=== PATIENT | male | born 1950 | race Two or more races ===

== ENCOUNTER → 2025-04-18 | Outpatient (CLI) | payer MEDICARE, SELFPAY ==
--- NOTE | 2025-04-18 08:44 | XR_ITS ---
Examination: Knee, left , 3 views Technique: Knee AP, lateral, oblique 3 views Date and time of exam: April 18, 2025 0906 hours INDICATIONS: Patient fell 6 days ago with injury to the knee, knee pain. FINDINGS: Prominent osteopenia No fracture or dislocation Moderate osteoarthritis medial patellofemoral joints IMPRESSION: No acute fracture
--- NOTE | 2025-04-18 08:44 | XR_ITS ---
Examination: Left femur 2 views Technique one AP lateral left femur 2 views Date and time: April 18 thousand 25 0906 hours INDICATIONS: History femur surgery 2002, patient fell 6 days ago with injury to the femur femur pain FINDINGS: Healed fracture left hip Severe osteopenia Shaft of the femur intact Orthopedic hardware satisfactory position IMPRESSION: No acute fracture Moderate left hip osteoarthritis
== END | disposition home or self-care (01) ==
PROVIDERS: PCP Registered Nurse; Referring Provider Registered Nurse; Visit Provider Registered Nurse
DX: M16.12 Unilateral primary osteoarthritis, left hip (principal); S89.92XA Unspecified injury of left lower leg, initial encounter; W19.XXXA Unspecified fall, initial encounter
CPT/HCPCS: 73552; 73562

== ENCOUNTER 2025-04-23 17:42 | Observation (INO) | payer MEDICARE, SELFPAY ==
[2025-04-23 17:43] VITALS: BMI 35.6
[2025-04-23 18:11] VITALS: BP 166/94; PULSE 96; RESP 18; TEMP 37.2; O2SAT 95
--- NOTE | 2025-04-23 18:25 | XR_ITS ---
Examination: AP lateral soft tissue neck 2 views TECHNIQUE: AP lateral soft tissue neck 2 views April 23, 2025, 1844 hours INDICATIONS: Patient states food stuck in his earlier today. FINDINGS: Prominent cervical spondylosis, osteophytes anterior to C5, C6 Normal epiglottis Surgical clips soft tissue left neck No opaque foreign body IMPRESSION: Prominent cervical spondylosis No opaque foreign body
--- NOTE | 2025-04-23 18:25 | EKG_ITS ---
[facility] Test Date: 2025-04-23 Pat Name: ELODIA VELEZ Department: Room: - Gender: Male [place] Man: : 1950 Requested By: Mickey Grover Order Number: [id number] Reading MD: Mickey Grover Measurements Intervals [place] Rate: 102 P: 22 WI: 192 QRS: -29 QRSD: 109 T: 81 QT: 309 QTc: 403 Interpretive Statements SINUS TACHYCARDIA POSSIBLE ANTERIOR MYOCARDIAL INFARCTION , OF INDETERMINATE AGE [30 ms Q WAVE IN V3/V4, OR R < 0.2 mV IN V4] Compared to ECG 12/12/2018 10:20:18 Myocardial infarct finding now present Sinus rhythm no longer present T-wave abnormality no longer present /store/S0/[id number].pdf
--- NOTE | 2025-04-23 18:25 | XR_ITS ---
Examination: PA chest single view TECHNIQUE: Upright PA chest single view April 23, 2025, 1842 hours Comparison December 12, 2018 INDICATIONS: Sudden chest pain today. FINDINGS: Mild opacity left base Minimal prominence left ventricle Ectatic thoracic aorta No pulmonary edema Prominent osteopenia IMPRESSION: Suspicious for early left basilar pneumonia, the appearance should be clinically correlated
--- NOTE | 2025-04-23 18:33 | EDNOTE_ITS ---
Nausea/Vomit./Diarrhea-RME/HPI General Chief complaint: Abdominal Pain Stated complaint: UPPER ABD DISCOMFORT AFTER LUNCH WITH VOMITING Time Seen by Provider: 04/23/25 18:24 Arrival date/time: 04/23/25 17:42 74M with history of CVA (residual L-sided weakness/contractures), HTN, and cholecystectomy presents to ED with lower chest/epigastric pain and N/V after he ate some carnitas tacos and believe some of it got stuck in his esophagus. This happened about 6 months ago, but it resolved on its own. Patient has not been able to pass fluids. Limitations: no limitations Related Data Home Medications ?Medication ?Instructions ?Recorded ?Confirmed baclofen 10 mg tablet 5 mg PO Q8HR PRN MUSCLE SPAS MS #0 10/01/15 12/12/18 tabs Amitriptyline Hcl * (ELAVIL *) 50 mg PO HS #0 tabs 03/0812/12/18 tamsulosin 0.4 mg capsule (Flomax) 0.4 mg PO QDAY ##0 08/28/16 12/12/18 gemfibrozil 600 mg tablet 600 mg PO BID 12/12/1812/12 mirtazapine 45 mg tablet 45 mg PO HS 12/12/18 9 Allergies Allergy/AdvReac Type Severity Reaction Status Date / Time No Known Allergies Allergy Verified 04/23/25 17:45 Review of Systems Review of Systems Systems Reviewed: All systems reviewed, normal except as documented Constitutional Constitutional: Reports system reviewed and no additional complaints, except as documented, Denies fever(s) and Denies headache(s) ENT Ears, Nose, Mouth, and Throat: Denies disequilibrium and Denies headache(s) Cardiovascular Cardiovascular: Reports system reviewed and no additional complaints, except as documented, Reports as per HPI, Reports chest pain and Denies dyspnea Respiratory Respiratory: Reports system reviewed and no additional complaints, except as doc umented, Denies cough and Denies dyspnea Gastrointestinal Gastrointestinal: Reports system reviewed and no additional complaints, except as documented, Reports as per HPI, Reports abdominal pain, Reports nausea and Reports vomiting Neurologic Neurologic: Reports system reviewed and no additional complaints, except as documented, Denies confusion, Denies disequilibrium and Denies headache(s) Psychiatric Psychiatric: Denies confusion Past Medical History Past Medical History NEUROLOGIC: Positive Neurological Disorders and Cerebrovascular Accident (left sided deficit, weakness) CARDIAC: Positive Hypercholesterolemia; Negative Congestive Heart Failure RESPIRATORY: Negative Chronic Obstructive Pulmonary Disease (COPD) GENITOURINARY: Negative Renal Disease ENDOCRINE: Negative Diabetes Mellitus Type 1 or Diabetes Mellitus Type 2 Social History SMOKING STATUS: Never smoker ED Exam General Limitations: Present no limitations General appearance: Present alert and in no apparent distress Head Head exam: Present atraumatic Eye Eye exam: Present normal appearance, PERRL and EOMI ENT ENT exam: Present normal exam, normal oropharynx and mucous membranes moist Neck Neck exam: Present normal inspection, full ROM and trachea midline Chest Chest inspection: Present normal inspection and symmetric chest wall rise Respiratory Respiratory exam: Present normal lung sounds bilaterally Cardiovascular Cardiovascular exam: Present regular rate, normal rhythm and normal heart sounds Abdominal Exam Abdominal exam: Present soft and normal bowel sounds Extremities Exam Extremities exam: Present normal inspection and full ROM Back Exam Back exam: Present normal inspection and full ROM Neurological Exam Neurological exam: Present alert, oriented X3 and CN II-XII intact Psychiatric Psychiatric exam: Present normal affect and normal mood Skin Skin exam: Present warm, dry, intact and normal color Course Quality Measures none Orders Category Date Time Status Blood glucose [Bedside Blood Glucose] NOW Care 04/23/25 18:25 Active COVID-19 Screening Questionnaire NOW Care 04/23/25 22:57 Active Decision to Admit X1 Care 04/23/25 22:57 Completed EKG (ED ONLY) *Do not use* NOW Care 04/23/25 18:25 Completed Insert IV NOW Care 04/23/25 23:05 Active NPO NOW Care 04/23/25 20:53 Active Consult to Gastroenterology Stat Cons 04/23/25 20:53 Ordered Diet NPO (NOW) Diet 04/23/25 20:53 Active EKG (ED Only) Stat Exams 04/23/25 18:25 Draft XR chest 1V portable Stat Exams 04/23/25 18:25 Completed XR soft tissue neck Stat Exams 04/23/25 18:25 Completed BNP [B-Type Natriuretic Peptide] Stat Lab 04/23/25 19:17 Completed CBC Stat Lab 04/23/25 19:17 Completed Comprehensive Metabolic Panel Stat Lab 04/23/25 19:17 Completed INR [Prothrombin Time with INR] Stat Lab 04/23/25 19:17 Completed PTT [Partial Thromboplastin Time] Stat Lab 04/23/25 19:17 Completed Troponin I Stat Lab 04/23/25 19:17 Completed Troponin I Stat Lab 04/23/25 23:20 Received Glucagon Inj Med 04/23/25 18:25 Discontinued 1 mg IM X1 ONE Metoclopramide Inj [Reglan Inj] Med 04/23/25 18:25 Discontinued 10 mg IM X1 ONE Vital Signs Vital signs: Vital Signs Temperature 99 F 04/23/25 18:11 Pulse Rate 96 04/23/25 18:11 Respiratory Rate 18 04/23/25 18:11 Blood Pressure 166/94 H 04/23/25 18:11 Pulse Oximetry (%) 95 04/23/25 18:11 Oxygen Delivery Method Room Air 04/23/25 18:11 O2 at 95% on RA and WNLs Nausea/Vomiting/Diarrhea MDM Narrative MDM Narrative:: 74M with history of CVA (residual L-sided weakness/contractures), HTN, and cholecystectomy presents to ED with lower chest/epigastric pain and N/V after he ate some carnitas tacos and believe some of it got stuck in his esophagus. This happened about 6 months ago, but it resolved on its own. Patient has not been able to pass fluids. Physical exam reveals no ab tenderness. Patient is afebrile, alert, but actively having N/V. EKG is NSR. XRs unremarkable. Normal trop (delta pending at time of admission). Normal BNP. Unremarkable CBC, CMP, and coags. After Reglan and Glucagon, no improvement. Spoke to Dr. Ferrer, GI, who recommends NPO and scope; will consult. Spoke to IM resident who reports to Dr. Harper, IM, who will admit patient. Patient data External records reviewed:: [facility] previous records Clinical information provided by:: patient Social determinants that could affect healthcare access:: none Patient has the following chronic illnesses:: CVA (residual L-sided weakness/contractures), HTN, and cholecystectomy How is presenting disease/condition affected by chronic disease/condition?: exacerbated by Evaluation data The following diagnostics were reviewed and interpreted by me:: lab results, radiology exam(s) and EKG tracing(s) Lab and/or radiology exams considered but not ordered:: ordered Interpretation Summary: above Medications / Prescriptions Medications / Prescriptions considered but not ordered:: ordered Medication administrations:: Medication Administration History Heparin Sodium (Porcine) (Heparin Sod Inj 5000 Unit/Ml Vial) 5,000 unit SC Q12HR [facility] Stop: 05/08/25 08:59 Ondansetron HCl (Ondansetron Inj 2 Mg/Ml Inj 2 Ml) 4 mg IVP Q6H PRN; Protocol PRN Reason: NAUSEA OR VOMITING Stop: 05/23/25 23:12 Discontinued Medications Glucagon (Glucagon Inj 1 Mg Vial) 1 mg IM X1 ONE Stop: 04/23/25 18:26 Last Admin: 04/23/25 19:09 Dose: 1 mg Documented By: DAINA Metoclopramide HCl (Metoclopramide Inj 5 Mg/Ml Vial 2 Ml) 10 mg IM X1 ONE; Protocol Stop: 04/23/25 18:26 Last Admin: 04/23/25 19:12 Dose: 10 mg Documented By: DAINA above Consultations Consultation(s) initiated? (list below): Yes Diagnosis Nausea Differential Diagnosis: traveler's diarrhea, food poisoning, gastroenteritis, clostridium difficile infection, drug-induced nausea and vomiting, dehydration and other (FB esophagus) Most likely diagnosis given after review of the tests above:: FB esophagus Admission Indicated Admission indicated?: indicated Admission Request Was there a request for admission?: Yes Admission Attestation Admission request attestation: Discussed case with [Dr. Harper] from Hospitalist service regarding admission. Discussed patients ED course, exam findings, labs, and radiology results. The Hospitalist [agrees] to accept the patient for admission. Disposition Plan Disposition Plan: Admit Discharge Plan Plan Patient Disposition: Admit Acute Care w/in Hospital Problem List Clinical Impression: Esophageal foreign body
[2025-04-23] MEDS: GLUCAGON INJ 1 MG VIAL IM (19:09)
[2025-04-23] MEDS: METOCLOPRAMIDE INJ 5 MG/ML VIAL 2 ML 10 MG IM (19:12)
[2025-04-23 19:26] LABS: Basophils # (Auto) 0.0 Thou/mm3 (0.0-0.2); Basophils % (Auto) 0 % (0-2.5); Eosinophils # (Auto) 0.1 Thou/mm3 (0.0-0.5); Eosinophils % (Auto) 1 % (0-10); Hematocrit 45.6 % (41.0-53.0); Hemoglobin 16.1 g/dL (13.5-16.0); Immature Granulocytes Auto 0.04 Thou/mm3 (0.00-0.00); Lymphocytes # (Auto) 2.3 Thou/mm3 (1.0-4.8); Lymphocytes % (Auto) 23 % (10-50); Mean Corpuscular HGB Conc 35.3 g/dl (31.0-37.0); Mean Corpuscular Hemoglobin 32.1 pg (25.0-35.0); Mean Corpuscular Volume 91 fL (80-100); Monocytes # (Auto) 1.0 Thou/mm3 (0.0-0.8); Monocytes % (Auto) 10 % (0-12); Neutrophils # (Auto) 6.6 Thou/mm3 (1.8-7.7); Neutrophils % (Auto) 66 % (37-80); Nucleated Red Blood Cell # 0.00 Thou/mm3 (0.00-0.00); Nucleated Red Blood Cell % 0 /100 WBC (0); Platelet Count 202 Thou/mm3 (140-440); RDW Standard Deviation 40.7 fL (35.1-43.9); Red Blood Count 5.02 Miln/mm3 (4.50-5.90); White Blood Count 10.0 Thou/mm3 (3.8-10.6)
[2025-04-23 19:43] LABS: INR 1.1 (0.9-1.3); Partial Thromboplastin Time 27.3 Seconds (22.0-36.0); Prothrombin Time 11.5 Seconds (9.0-12.2)
[2025-04-23 19:45] LABS: B-Type Natriuretic Peptide < 20 pg/mL (0-100)
[2025-04-23 19:46] LABS: Alanine Aminotransferase 32 U/L (10-49); Albumin, Serum 4.8 gm/dL (3.4-4.8); Albumin/Globulin Ratio 1.6 (1.2-2.2); Alkaline Phosphatase 108 U/L (46-116); Anion Gap 9 (7-16); Aspartate Amino Transferase 38 U/L (0-34); BUN/Creatinine Ratio 11 Ratio (12-20); Bilirubin,Total 0.4 mg/dL (0.3-1.2); Blood Urea Nitrogen 11 mg/dL (9-23); Calcium 9.8 mg/dL (8.3-10.6); Calcium (Corrected) 9.8 mg/dL (8.5-10.1); Carbon Dioxide 24.1 mMol/L (20.0-31.0); Chloride 102 mMol/L (98-107); Creatinine (Component) 1.0 mg/dL (0.6-1.3); Estimated Creatinine Clearance 76.5 mL/min (>60); Globulin 3.0 gm/dL (2.3-3.5); Glucose 117 mg/dL (74-106); Osmolality,Calculated 270 (275-295); Potassium 4.4 mMol/L (3.4-5.1); Sodium 135 mMol/L (136-145); Total Protein 7.8 gm/dL (5.7-8.2); Troponin I < 0.020 ng/mL (0.0-0.045); eGFR > 60 See Note
--- NOTE | 2025-04-23 23:15 | PD.RESHP ---
Documentation for date of: 04/23/25 HPI History of Present Illness Chief complaint: Foreign object aspiration History of present illness: 74-year-old male with past medical history of hypertension, hyperlipidemia, BPH, possible psychiatric history presenting to the ED on 04/24 after he choked on a piece of taco meat. Patient presenting from home with daughter bedside who provided some history; moreover, apparently patient was eating a taco when he felt it has go down incorrectly. Patient is currently stating that he has some discomfort in his substernal region with no radiation and no other concerning symptoms such as shortness of breath, palpitations, dizziness. Patient still feels like that there is some things stuck in his throat but denies having any current cough. Patient's daughter provided list of medications but was unsure exactly why the patient was taking the medications. Medical history: As stated above Surgical history: Denies Allergies: NKDA Medications: Pending med rec Family history: Noncontributory Social history: Patient lives at home, denies any alcohol, tobacco or illicit drug use. ROS: All 12 systems assessed and the patient denies unless otherwise stated in HPI In the ED, patient presented hypertensive 166/94, mildly tachycardic with a heart rate 96 but rest of vitals were unremarkable. Lab findings were pertinent for hemoglobin of 16.1, sodium 135, glucose of 117, mildly elevated AST of 38 but otherwise pretty unremarkable labs. Chest x-ray showed suspicious for early left basilar pneumonia, soft tissue neck x-ray showed prominent cervical spondylosis but no opaque foreign body was noted. EKG showed sinus tachycardia with left axis deviation but no concerning ST changes noted. ED provider contacted gastroenterology who was agreed to do an EGD for foreign aspiration removal. Exam Vital Signs Temp Pulse Resp BP Pulse Ox O2 Del Method 99 F 96 18 166/94 H 95 Room Air 04/23/25 18:11 04/23/25 18:11 04/23/25 18:11 04/23/25 18:11 04/23/25 18:11 04/23/25 18:11 Narrative Exam Physical Exam: GENERAL: Awake, answering questions appropriately, appears stated age, obese HEENT: NC/AT. Moist mucosa. PERRLA/EOMI. Oropharynx clear CARDIO: Heart RRR, no obvious murmurs, no JVD. PULM: No coughing or visible SOB. Lungs CTA B/L. GI: Abdomen soft, NT/ND, +BS. SKIN/MSK/EXT: No wounds/discoloration/rashes/edema/amputations noted. +Pedal pulses present B/L. NEURO: Oriented x3, Moves extremities x4, no focal neurological deficits noted. Results: Labs 04/23/25 19:17 04/23/25 19:17 Labs: Short CBC 04/23/25 Range/Units 19:17 WBC 10.0 (3.8-10.6) Thou/mm3 Hgb 16.1 H (13.5-16.0) g/dL Hct 45.6 (41.0-53.0) % Plt Count 202 (140-440) Thou/mm3 BMP 04/23/25 19:17 Sodium 135 L Potassium 4.4 Chloride 102 Carbon Dioxide 24.1 BUN 11 Creatinine 1.0 Glucose 117 H Calcium 9.8 Cardiac Enzymes 04/23/25 Range/Units 19:17 Troponin I < 0.020 (0.0-0.045) ng/mL Liver Function 04/23/25 Range/Units 19:17 Total Bilirubin 0.4 (0.3-1.2) mg/dL AST 38 H (0-34) U/L ALT 32 (10-49) U/L Alkaline Phosphatase 108 (46-116) U/L Albumin 4.8 (3.4-4.8) gm/dL Quality Measures Quality Measures none Advance care planning discussed with:: patient Medications Home Medications and Allergies Home Medications ?Medication ?Instructions ?Recorded ?Confirmed ?Type baclofen 10 mg tablet 5 mg PO Q8HR PRN MUSCLE SPASMS #0 10/01/15 12/12/18 History tabs Amitriptyline Hcl * (ELAVIL *) 50 mg PO HS #0 tabs 08/28/16 12/12/18 History tamsulosin 0.4 mg capsule (Flomax) 0.4 mg PO QDAY ##0 08/28/16 12/12/18 History gemfibrozil 600 mg tablet 600 mg PO BID 12/12/18 12/12/18 History mirtazapine 45 mg tablet 45 mg PO HS 12/12/18 12/12/18 History Allergies Allergy/AdvReac Type Severity Reaction Status Date / Time No Known Allergies Allergy Verified 04/23/25 17:45 Visit Medications Discontinued Medications Glucagon (Glucagon Inj 1 Mg Vial) 1 mg IM X1 ONE Stop: 04/23/25 18:26 Last Admin: 04/23/25 19:09 Dose: 1 mg Metoclopramide HCl (Metoclopramide Inj 5 Mg/Ml Vial 2 Ml) 10 mg IM X1 ONE; Protocol Stop: 04/23/25 18:26 Last Admin: 04/23/25 19:12 Dose: 10 mg Assessment & Plan Plan 74-year-old male with past medical history of hypertension, hyperlipidemia, BPH, possible psychiatric history presenting to the ED on 04/24 after he choked on a piece of taco meat, admitted for gastroenterology who was agreed to do an EGD for foreign aspiration removal. #Foreign Body Aspiration As stated above, currently stable Plan: GI to do endoscopy for removal in the AM Monitor for any acute changes #Hypertension Currently mildly hypertensive Pending official med rec Plan: Restart home medications when appropriate #BPH Patient on home tamsulosin 0.4 mg p.o. twice daily Plan: Restart home medication #Hyperlipidemia #Chronic pain #Psychiatric disorder? Chronic medical conditions not pertinent following presentation Pending med rec Plan: Restart home medications when appropriate Health Maintenance: Lines: PIV Diet: N.p.o. Bowel: Not needed GI prophylaxis: Not needed DVT prophylaxis: Heparin subcu Dispo: Pending EGD with GI for foreign object removal Code: Full Patient seen and assessed with attending Dr. Meredith Fan, DO PGY-2 Internal Medicine - GME Attending Provider Attestation/Addendum 74-year-old male patient with prior stroke, left hemiparesis, history of dysphagia presents with food stuck in his throat. Patient had taco long time. Patient still feels something stuck in his throat. Most likely a piece of meat. He had a taco with candy has had according to the daughter at bedside. He does not take blood thinners. Dr. Ferrer from GI was consulted. Most likely he will perform EGD to this patient. He has no nausea vomiting or hematemesis. Discussed with housestaff.
[2025-04-23 23:46] VITALS: BP 167/90; PULSE 103; RESP 18; TEMP 37.1; O2SAT 95
[2025-04-23 23:53] LABS: Troponin I < 0.020 ng/mL (0.0-0.045)
[2025-04-24] VITALS (14 sets, daily range): BP systolic 128–187; BP diastolic 78–114; PULSE 75–98; RESP 15–19; TEMP 36.2–36.9; O2SAT 94–98; BMI 35.6
[2025-04-24 00:07] LABS: COVID-19 Antigen (In-House) Negative (Negative)
--- NOTE | 2025-04-24 03:15 | PC.NURSE ---
WE HAD DOWN TIME FROM [id number].
[2025-04-24 05:20] LABS: Basophils # (Auto) 0.0 Thou/mm3 (0.0-0.2); Basophils % (Auto) 0 % (0-2.5); Eosinophils # (Auto) 0.2 Thou/mm3 (0.0-0.5); Eosinophils % (Auto) 2 % (0-10); Hematocrit 45.2 % (41.0-53.0); Hemoglobin 16.3 g/dL (13.5-16.0); Immature Granulocytes Auto 0.02 Thou/mm3 (0.00-0.00); Lymphocytes # (Auto) 3.0 Thou/mm3 (1.0-4.8); Lymphocytes % (Auto) 31 % (10-50); Mean Corpuscular HGB Conc 36.1 g/dl (31.0-37.0); Mean Corpuscular Hemoglobin 32.0 pg (25.0-35.0); Mean Corpuscular Volume 89 fL (80-100); Monocytes # (Auto) 1.2 Thou/mm3 (0.0-0.8); Monocytes % (Auto) 13 % (0-12); Neutrophils # (Auto) 5.3 Thou/mm3 (1.8-7.7); Neutrophils % (Auto) 54 % (37-80); Nucleated Red Blood Cell # 0.00 Thou/mm3 (0.00-0.00); Nucleated Red Blood Cell % 0 /100 WBC (0); Platelet Count 200 Thou/mm3 (140-440); RDW Standard Deviation 40.2 fL (35.1-43.9); Red Blood Count 5.09 Miln/mm3 (4.50-5.90); White Blood Count 9.7 Thou/mm3 (3.8-10.6)
[2025-04-24 05:37] LABS: Anion Gap 7 (7-16); BUN/Creatinine Ratio 13 Ratio (12-20); Blood Urea Nitrogen 10 mg/dL (9-23); Calcium 9.3 mg/dL (8.3-10.6); Carbon Dioxide 26.4 mMol/L (20.0-31.0); Chloride 105 mMol/L (98-107); Creatinine (Component) 0.8 mg/dL (0.6-1.3); Estimated Creatinine Clearance 95.7 mL/min (>60); Glucose 103 mg/dL (74-106); Osmolality,Calculated 274 (275-295); Potassium 4.2 mMol/L (3.4-5.1); Sodium 138 mMol/L (136-145); eGFR > 60 See Note
[2025-04-24 07:29] LABS: COVID-19 Antigen (In-House) Negative (Negative)
--- NOTE | 2025-04-24 07:40 | PC.NURSE ---
Patient up with assistance from LACEMAKER to use bedside commode. Patient has left sided weakness and left arm contracted, deficits from previous CVA
[2025-04-24] MEDS: HEPARIN SOD INJ 5000 UNIT/ML VIAL SC (09:26)
--- NOTE | 2025-04-24 12:21 | PD.IMCONS ---
HPI Data of Consult Requesting Physician: Armando Osborn DO Primary Care Provider: Odell Capps MD Consult Narrative Reason for consult: Foreign body obstruction esophagus History of present illness: 74 years old male came to the emergency room as bleeding and alcohol in the present because stuck in the throat X-ray soft tissue neck does not show any opaque chest Patient was admitted for further evaluation Patient has essential hypertension hyperlipidemia BPH and psychiatric issues cc:: cc: Armando Osborn DO Review of Systems Review of Systems Systems Reviewed: All systems reviewed, normal except as documented Past Medical History Surgical History OTHER SURGICAL HX: As in the history of present illness Meds Home Medications and Allergies Home Medications ?Medication ?Instructions ?Recorded ?Confirmed ?Type baclofen 10 mg tablet 10 mg PO HS MUSCLE SPASMS #0 tabs 10/01/15 04/24/25 History Amitriptyline Hcl * (ELAVIL *) 50 mg PO HS #0 tabs 08/28/16 04/24/25 History tamsulosin 0.4 mg capsule (Flomax) 0.4 mg PO QDAY ##0 08/28/16 04/24/25 History atorvastatin 80 mg tablet 40 mg PO HS 04/24/25 04/24/25 History calcium carbonate (Calcium 600) 600 mg PO QDAY 04/24/25 04/24/25 History carbamazepine 200 mg tablet 200 mg PO BID 04/24/25 04/24/25 History cholecalciferol (vitamin D3) 50 50 mcg PO QDAY 04/24/25 04/24/25 History mcg (2,000 unit) tablet (Vitamin D3) lisinopril 10 mg tablet 10 mg PO QDAY 04/24/25 04/24/25 History naproxen 500 mg tablet 500 mg PO QAM 04/24/25 04/24/25 History trazodone 100 mg tablet 100 mg PO HS 04/24/25 04/24/25 History Allergies Allergy/AdvReac Type Severity Reaction Status Date / Time No Known Allergies Allergy Verified 04/23/25 17:45 Exam Vital Signs Temp Pulse Resp BP Pulse Ox O2 Del Method 98.5 F 75 16 158/82 H 95 Room Air 04/24/25 06:38 04/24/25 06:38 04/24/25 06:38 04/24/25 06:38 04/24/25 06:38 04/24/25 06:38 Routine Respiratory Exam Comments: Normal to auscultation Routine Abdominal Exam Comments: Soft nontender Results Labs 04/24/25 04:40 04/24/25 04:40 Labs: Short CBC 04/23/25 04/24/25 Range/Units 19:17 04:40 WBC 10.0 9.7 (3.8-10.6) Thou/mm3 Hgb 16.1 H 16.3 H (13.5-16.0) g/dL Hct 45.6 45.2 (41.0-53.0) % Plt Count 202 200 (140-440) Thou/mm3 BMP 04/23/25 04/24/25 19:17 04:40 Sodium 135 L 138 Potassium 4.4 4.2 Chloride 102 105 Carbon Dioxide 24.1 26.4 BUN 11 10 Creatinine 1.0 0.8 Glucose 117 H 103 Calcium 9.8 9.3 Cardiac Enzymes 04/23/25 04/23/25 Range/Units 19:17 23:20 Troponin I < 0.020 < 0.020 (0.0-0.045) ng/mL Liver Function 04/23/25 Range/Units 19:17 Total Bilirubin 0.4 (0.3-1.2) mg/dL AST 38 H (0-34) U/L ALT 32 (10-49) U/L Alkaline Phosphatase 108 (46-116) U/L Albumin 4.8 (3.4-4.8) gm/dL Assessment and Plan Additional Assessment & Plan Additional Plan: # Foreign body obstruction esophagus Plan fiberoptic esophagogastroduodenoscopy with possible biopsy Possible therapeutic intervention under intravenous moderate sedation Consent obtained Will proceed with the procedure Thank you very much for the opportunity to participate in care of this patient
--- NOTE | 2025-04-24 13:05 | PD.RESPRO ---
Subjective Subjective Interval history: Patient is a 74 y/o male with a PMHx of CVA, HTN, HLD, and BPH admitted overnight from the emergency department for possible esophageal aspiration and aspiration pneumonitis. Patient was interviewed along with assistance from his son-in-law, Nas. Patient stated that he was eating too fast and stated there was a previous similar episode in October; in that instance, patient stated that the piece of food dislodged and passed. Patient reported pain in the substernal region without radiation. Patient reported coughing last night in the ED without regurgitation of food particles. Patient's son-in-law stated that the patient did projectile vomit clear liquid in the ED last night. Patient stated that he has difficulty swallowing solids and was able to ingest liquids without regurgitation this morning for the first time since the episode. Patient reported further vomiting of clear liquid this morning, measuring about half a blue bag. Patient denied chest pain, SOB, and nausea. CXR completed 04/23 demonstrated possible aspiration pneumonia/pneumonitis with no esophageal opacity ECG completed 04/23 demonstrated possible previous anterior [place] Gastroenterology consult completed 04/24. EGD completed 04/24. Exam Vital Signs Temp Pulse Resp BP Pulse Ox O2 Del Method 98.5 F 75 16 158/82 H 95 Room Air 04/24/25 06:38 04/24/25 06:38 04/24/25 06:38 04/24/25 06:38 04/24/25 06:38 04/24/25 06:38 Objective Labs 04/24/25 04:40 04/24/25 04:40 Labs: Laboratory Results - last 24 hr 04/23/25 04/23/25 04/23/25 19:17 23:20 23:37 WBC 10.0 RBC 5.02 Hgb 16.1 H Hct 45.6 MCV 91 MCH 32.1 MCHC 35.3 RDW Std Deviation 40.7 Plt Count 202 Neut % (Auto) 66 Lymph % (Auto) 23 [place] % (Auto) 10 Eos % (Auto) 1 Baso % (Auto) 0 Neut # (Auto) 6.6 Lymph # (Auto) 2.3 [place] # (Auto) 1.0 H Eos # (Auto) 0.1 Baso # (Auto) 0.0 Immature Gran # (Auto) 0.04 H Absolute Nucleated RBC 0.00 Immature Gran % 0 Nucleated RBC % 0 PT 11.5 INR 1.1 APTT 27.3 Sodium 135 L Potassium 4.4 Chloride 102 Carbon Dioxide 24.1 Anion Gap 9 BUN 11 Creatinine 1.0 Estim Creat Clear Calc 76.5 eGFR > 60 BUN/Creatinine Ratio 11 L Glucose 117 H Calculated Osmolality 270 L Calcium 9.8 Corrected Calcium 9.8 Total Bilirubin 0.4 AST 38 H ALT 32 Alkaline Phosphatase 108 Troponin I < 0.020 < 0.020 B-Natriuretic Peptide < 20 Total Protein 7.8 Albumin 4.8 Globulin 3.0 Albumin/Globulin Ratio 1.6 SARS-CoV-2 Ag (Rapid) Negative 04/24/25 04/24/25 04:40 07:03 WBC 9.7 RBC 5.09 Hgb 16.3 H Hct 45.2 MCV 89 MCH 32.0 MCHC 36.1 RDW Std Deviation 40.2 Plt Count 200 Neut % (Auto) 54 Lymph % (Auto) 31 [place] % (Auto) 13 H Eos % (Auto) 2 Baso % (Auto) 0 Neut # (Auto) 5.3 Lymph # (Auto) 3.0 [place] # (Auto) 1.2 H Eos # (Auto) 0.2 Baso # (Auto) 0.0 Immature Gran # (Auto) 0.02 H Absolute Nucleated RBC 0.00 Immature Gran % 0 Nucleated RBC % 0 PT INR APTT Sodium 138 Potassium 4.2 Chloride 105 Carbon Dioxide 26.4 Anion Gap 7 BUN 10 Creatinine 0.8 Estim Creat Clear Calc 95.7 eGFR > 60 BUN/Creatinine Ratio 13 Glucose 103 Calculated Osmolality 274 L Calcium 9.3 Corrected Calcium Total Bilirubin AST ALT Alkaline Phosphatase Troponin I B-Natriuretic Peptide Total Protein Albumin Globulin Albumin/Globulin Ratio SARS-CoV-2 Ag (Rapid) Negative Imaging and cardiology Chest x-ray: Status: image reviewed by mo Quality Measures Quality Measures none Assessment & Plan Assessment Current Active Medications: Generic Name Dose Route Start Last Admin Trade Name Freq PRN Reason Stop Dose Admin Diphenhydramine HCl 25 mg 04/24/25 12:52 Diphenhydramine Inj 50 Mg/Ml Vial IVP 04/24/25 14:52 [id number] PRN MODERATE SEDATION Fentanyl Citrate 50 mcg 04/24/25 12:52 Fentanyl Cit Inj 50 Mcg/Ml Amp 2ml IVP 04/24/25 14:52 Q2M PRN MODERATE SEDATION Heparin Sodium (Porcine) 5,000 unit 04/24/25 09:00 04/24/25 09:26 Heparin Sod Inj 5000 Unit/Ml Vial SC 05/08/25 08:59 5,000 unit Q12HR KAYLIE Administration Midazolam HCl 2 mg 04/24/25 12:52 Midazolam Inj 1 Mg/Ml Vial 2 Ml IVP 04/24/25 14:52 Q2M PRN Moderate Sedation Ondansetron HCl 4 mg 04/23/25 23:13 Ondansetron Inj 2 Mg/Ml Inj 2 Ml IVP 05/23/25 23:12 Q6H PRN NAUSEA OR VOMITING Protocol Tamsulosin HCl 0.4 mg 04/24/25 09:00 Tamsulosin Hcl 0.4 Mg Capsule PO 05/24/25 08:59 BID KAYLIE
--- NOTE | 2025-04-24 13:37 | ESDS_ITS ---
Planned Discharge Date 04/24/25 DS: Providers Provider Date of admission: 04/23/25 23:13 Primary care physician: Odell Capps MD Admitting Provider: Festus Harper MD Attending Provider on Admission: Armando Osborn DO Consults: 04/23/25 20:53 Consult to Gastroenterology Stat Comment: Consulting Provider: Saul Ferrer Attending Provider on DC: Lashell Polanco Discharging Provider: Lashell Polanco Anticipated date of discharge: 04/24/25 DS: Diagnosis Problem List Completed Was Problem List Reviewed/Reconciled?: Yes Hospital Course Hospital Course Hospital course: Summary: Patient is a 74 y/o male with a PMHx of CVA, HTN, HLD, and BPH admitted overnight from the emergency department for possible foreign body ingestion. Patient was on 04/23/2025, where he noted N/V. At that time he noted sharp sub- sternal discomfort without radiation. Patient admitted for aspiration of foreign object likely food, now status post EGD. ER Course: In the ED, patient presented hypertensive 166/94, mildly tachycardic with a heart rate 96 but rest of vitals were unremarkable. Lab findings were pertinent for hemoglobin of 16.1, sodium 135, glucose of 117, mildly elevated AST of 38 but otherwise pretty unremarkable labs. Chest x-ray showed suspicious for early left basilar pneumonia, soft tissue neck x-ray showed prominent cervical spondylosis but no opaque foreign body was noted. EKG showed sinus tachycardia with left axis deviation but no concerning ST changes noted. ED provider contacted gastroenterology who was agreed to do an EGD for foreign aspiration removal. Hospital Course: Patient will status post EGD complemented by iron erector noted to have esophageal ulcer at the distal esophagus junction near site of foreign body impaction likely food. Erythemic mucus noted. Patient obtained safely be discharged home. Given aspiration of foreign object and history of CVA, recommend patient take small portions of food at a time, may consider soft diet. Patient recommended to follow-up with PCP within 1 week of discharge. No changes made to home medication. Patient is stable and at baseline will be discharged home. Instructions: -Please continue all medication as prescribed, no changes made. -Please follow up with your primary care provider within one week of discharge -If your symptoms worsen,please seek immediate medical attention and return to your nearest emergency room -If you do not have a primary care provider, you may follow up at the [facility] at [address], [place] [address], Diagnosis: #Esophageal Foreign Body #Esophagitis determined by endoscopy #Foreign body ingestion #Esophageal ring - The patient's plan was discussed with attending Dr. Anurag Colby MD PGY2 Internal Medicine Status at Discharge Cognitive/behavioral status at discharge: Patient is AO x 4 Functional status at discharge: uses cane/walker (Patient has history of CVA with left-sided deficits) Overall status at discharge: patient is back to baseline Time Spent with Patient Time attestation: Total time spent providing and/or coordinating discharge services: at least 30 minutes of care and coordination Time spent: Greater than 30 minutes Quality: AMI Clinical Trial Participant: No Quality: Stroke Reason for No Antithrombotic at DC: Not indicated Reason for No Anticoagulant at DC: Not indicated Contraindication Not Initiating IV-Tpa: Treatment not indicated Contraindication Antithromb by Day Two: Treatment not indicated Pt Provided Written Stroke Discharge Instructions: No Contraindication Rehab Services Not Assessed: Treatment not indicated Quality: VTE Contraindication No VTE Prophylaxis: Treatment not indicated Contraindication No Overlap Therapy: Treatment not indicated Is this test being ordered to rule out VTE?: No Deep Vein Thrombosis/Pulmonary Embolism Present on Admission: No Exam Vital Signs Temp Pulse Resp BP Pulse Ox O2 Del Method O2 Flow Rate 98.5 F 93 18 187/83 H 95 Room Air 3 04/24/25 06:38 04/24/25 13:00 04/24/25 13:00 04/24/25 13:00 04/24/25 13:00 04/24/25 06:38 04/24/25 13:00 Narrative Exam General Appearance: Alert & Oriented X3, well-nourished male who is lying in bed in no acute distress HEENT: Skull symmetrical and atraumatic. Conjunctivae pink and moist. Pupils equal, round, reactive to light and accommodation (PERRL). External ear without lesion or discharge. Straight, nares patient, mucosa pink, no discharge. No thyroid nodule appreciated. No cervical lymphadenopathy. Cardio: Normal Rate and Rhythm with S1 and S2 heart sounds. No murmurs or extra heart sounds auscultated. No bruits on carotid auscultation. No peripheral edema or cyanosis. Lungs: Symmetric with good expansion. Chest and back non-tender. Breath sounds vesicular without crackles, wheezing or rhonchi Abdomen: Non-tender, Non-distended, Normal Reactive Bowel Sounds Neuro: Alert, cooperative, oriented to person, place, and time. Speech clear. CN grossly intact. Upper motor strength 5/5 and Lower motor strength 5/5. Sensation intact Discharge Plan Plan Patient Disposition: HOME (Self Care) Disposition Comment: Patient is at baseline Patient condition on transfer: Stable Care Plan Goals: Instructions: -Please continue all medication as prescribed, no changes made. -Please follow up with your primary care provider within one week of discharge -If your symptoms worsen,please seek immediate medical attention and return to your nearest emergency room -If you do not have a primary care provider, you may follow up at the [facility] at [address] [place] [address] [address], [place] [address], Prescriptions/Referrals Prescriptions/Med Rec: Continued baclofen 10 MG tablet 10 mg PO HS Qty: 0 Amitriptyline Hcl * (ELAVIL *) 50 MG tablet 50 mg PO HS Qty: 0 tamsulosin [Flomax] 0.4 MG capsule,extended release 24hr 0.4 mg PO QDAY Qty: 0 atorvastatin 80 mg tablet 40 mg PO HS Patient Comments: TAKE 1 TABLET BY MOUTH EVERY DAY trazodone 100 mg tablet 100 mg PO HS Patient Comments: TAKE 1 TABLET BY MOUTH EVERYDAY AT BEDTIME calcium carbonate [Calcium 600] 600 mg calcium (1,500 mg) tablet 600 mg PO QDAY lisinopril 10 mg tablet 10 mg PO QDAY naproxen 500 mg tablet 500 mg PO QAM cholecalciferol (vitamin D3) [Vitamin D3] 50 mcg (2,000 unit) tablet 50 mcg PO QDAY carbamazepine 200 mg tablet 200 mg PO BID Referrals: Odell Capps MD [Primary Care Provider] - Patient/Caregiver Discharge Instructions Discharge Activity: as per physical therapy Education Materials: Dysphagia Aspiration Print Language: Persian Stand Alone Forms: [employer] Award Info., Patient Portal Info Letter Discharge Order Discharge Orders: Discharge (Routine); Ordered 04/24/25 Ordered By: Kayla Akins Quality Discharge Quality Measures none Attestestation Attestation I have discussed and was present for the essential components of the discharge history, physical examination, diagnosis, and discharge treatment plan with the resident. I agree with the patient's discharge care as documented by the resident and amended herein by me. Rober Osborn DO. EGD performed on day of discharge demonstrated an esophageal ulcer at the distal esophagus/GE junction at the site of impact of foreign body. GI recommended regular diet and cleared the patient for discharge home. No GI follow-up necessary. The patient was stable, afebrile, tolerating p.o. intake and ambulatory at time of discharge home. The patient understood all discharge instructions, all questions were answered satisfactorily. The patient was instructed to return to the Emergency Department is symptoms worsened or persisted. Although this document has been carefully reviewed, there may still be some phonetic and other typographical errors. These errors are purely grammatical due to imperfections in the software program and should not be construed in any way to compromise the substance of the patient's medical care during this visit.
--- NOTE | 2025-04-24 13:48 | SUR.PHASEI ---
1308: pt arrived to PACU via gurney drowsy but arouses to voice, breathing unlabored, report from Denise MEDRANO [id number]: pt awake, alert, able to follow commands, breathing unlabored, report to Courtney MEDRANO, pt transferred to room at this time
[2025-04-24] MEDS: TAMSULOSIN HCL 0.4 MG CAPSULE PO (14:47)
--- NOTE | 2025-04-24 15:00 | PC.URM ---
I spoke with Dr. Akins about changing this patient's status to observation as he was not meeting per MCG IP criteria and is discharging in [address] Akins agreed and gave me orders for observation.
== END 2025-04-24 16:26 | disposition home or self-care (01) ==
LOC: SERX 20:05 → SERHOLD 23:52 → S3NX 04-24 10:52 → SERHOLD 04-26 06:14
PROVIDERS: Physician Assistant; Specialist; Admitting Provider Internal Medicine; Emergency Provider Emergency Medicine; PCP Family Medicine; Visit Provider Student in an Organized Health Care Education/Training Program
PROC: (CPT 43239; principal; 2025-04-24 13:15)
DX: K22.10 Ulcer of esophagus without bleeding (principal); K31.89 Other diseases of stomach and duodenum; E78.5 Hyperlipidemia, unspecified; G89.29 Other chronic pain; I10 Essential (primary) hypertension; I69.354 Hemiplegia and hemiparesis following cerebral infarction affecting left non-dominant side; K22.2 Esophageal obstruction; N40.0 Benign prostatic hyperplasia without lower urinary tract symptoms; T18.108A Unspecified foreign body in esophagus causing other injury, initial encounter; W44.9XXA Unspecified foreign body entering into or through a natural orifice, initial encounter; Z01.810 Encounter for preprocedural cardiovascular examination
CPT/HCPCS: 43235; 36415; 70360; 71045; 80048; 80053; 83880; 84484; 85025; 85379; 85610; 85730; 87811; 93005; 96372; 99285; G0378; J1200; J1611; J1644; J2250; J2765; J3010; A9270